=== PATIENT | female | born 1975 | race Caucasian/White ===

== ENCOUNTER 2022-07-24 12:30 | Outpatient (CLI) | payer SELFPAY | END 2022-07-24 12:45 | disposition home or self-care (01) | LOC: LAB.N 12:30 | PROVIDERS: ATTEND Registered Nurse | DX: Z53.9 Procedure and treatment not carried out, unspecified reason (principal) | CPT/HCPCS: 36415; 80053; 81599; 83036; 84443; 85025 ==

== ENCOUNTER 2022-08-16 12:40 | Outpatient (CLI) | payer OTHER ==
[~2022-08-16 12:40] MED LIST: GADOBUTROL 7.5 MMOL/7.5 ML VIAL ONE
--- NOTE | 2022-08-16 15:06 | MRI Report ---
PROCEDURE: BRAIN W/WO INDICATIONS: VISION CHANGES CONTRAST: gadavist 7.5ml TECHNIQUE: Noncontrast axial T1 spin echo, axial T2 fast spin echo, sagittal and axial FLAIR, coronal T2 fast sp in echo, axial gradient echo, axial diffusion and ADC through the brain. After the administration of contrast, axial and coronal T1 spin echo with fat saturation through the brain. COMPARISON: None. FINDINGS: Image quality: Excellent. CSF spaces: Basal cisterns are patent. No extra-axial fluid collections. Ventricles are normal in size and shape. Brain: No midline shift. No intracranial bleeds or masses. No abnormal intracranial enhancement. The brainstem appears normal. Diffusion-weighted images demonstrate no acute ischemic insults. No c hronic ischemic insults. Normal intravascular flow voids are present. There are five T2 hyperintens e foci within the periventricular and deep white matter, without enhancement. Skull and face: Calvarial marrow is normal in signal. Orbits appear normal. No evidence of optic n euritis. Sinuses: Sinuses and mastoids appear clear. IMPRESSION: Five T2 hyperintense foci within the periventricular and deep white matter, without enhancement. No e vidence of optic neuritis. Findings are nonspecific but can be seen in the setting of demyelinating d isorder such as multiple sclerosis, or in some cases of chronic migraine headaches. Correlate with hi story. Reviewed by: Varun Cuenca on 08/16/2022 3:04 PM PDT Approved by: Varun Cuenca on 08/16/2022 3:04 PM PDT Station ID: [id number]
[2022-08-16] MEDS ORDERED: GADOBUTROL 7.5 MMOL/7.5 ML VIAL IVP ONE (18:17)
== END 2022-08-16 12:41 | disposition home or self-care (01) ==
LOC: DI 12:40
PROVIDERS: ATTEND Registered Nurse
DX: H53.9 Unspecified visual disturbance (principal); R20.2 Paresthesia of skin
CPT/HCPCS: 70553; A9585